=== PATIENT | female | born 1965 | race Caucasian/White ===

== ENCOUNTER 2016-11-16 14:13 | Emergency (ER) | payer BC ==
[2016-11-16 14:45] VITALS: BP 126/87
--- NOTE | 2016-11-16 15:16 | UC ---
Throat Pain/Nasal Alfie HPI - HPI Summary HPI Summary: 2d of sinus congestion, ST (now resolving), headache, malaise. Today "moved into the chest" and she has a non-productive cough that will sometimes end in a gag. No fever. She has a history of pneumonia and sinusitis in past, is concerned this will "turn into pneumonia". Poor appetite but was able to eat and drink some today. - History of Current Complaint Chief Complaint: UCGeneralIllness Stated Complaint: CONGESTION Time Seen by Provider: 11/16/16 14:52 Hx Obtained From: Patient Onset/Duration: Gradual Onset, Lasting Days - 2 Severity: Mild Cough: Nonproductive Associated Signs & Symptoms: Positive: Dysphagia, Hoarseness, Sinus Discomfort, Nasal Discharge. Negative: Fever, Vomiting, Rash Related History: Other (Noted In Comments) - history of pneumonia and sinusitis - Epiglottits Risk Factors Epiglottis Risk Factors: Negative - Allergies/Home Medications Allergies/Adverse Reactions: Allergies Allergy/AdvReac Type Severity Reaction Status Date / Time No Known Allergies Allergy Verified 11/16/16 14:45 Home Medications: Home Medications Cholecalciferol TAB* [Vitamin D TAB*] 1,000 unit PO DAILY 11/16/16 [History Confirmed 11/16/16] Levothyroxine TAB* [Synthroid 125 MCG TAB*] 125 mcg PO DAILY 11/16/16 [History Confirmed 11/16/16] Magnesium CITRATE* [Citrate of Magnesia*] 300 ml PO ONCE 11/16/16 [History Confirmed 11/16/16] PMH/Surg Hx/FS Hx/Imm Hx Endocrine History Of: Reports: Thyroid Disease Cardiovascular History Of: Denies: Pacemaker/ICD Respiratory History Of: Reports: Pneumonia - Surgical History Surgical History: None Surgery Procedure, Year, and Place: HYSTERECTOMY 2001. TUBAL LIGATION 1999 - Family History Known Family History: Positive: Hypertension - Social History Occupation: Employed Full-time - works 2 jobs Lives: With Family Alcohol Use: Occasionally Substance Use Type: None Smoking Status (MU): Never Smoked Tobacco Review of Systems Constitutional: Chills, Fatigue Skin: Negative Eyes: Negative ENT: Sore Throat, Nasal Discharge Respiratory: Cough Cardiovascular: Negative Gastrointestinal: Negative Genitourinary: Negative Motor: Negative Neurovascular: Negative Musculoskeletal: Myalgia Neurological: Headache Psychological: Negative All Other Systems Reviewed And Are Negative: Yes Physical Exam Triage Information Reviewed: Yes Appearance: Well-Appearing, No Pain Distress, Well-Nourished Vital Signs: Initial Vital Signs Temp 98.3 F 11/16/16 14:42 Pulse 75 11/16/16 14:42 Resp 18 11/16/16 14:42 BP 126/87 11/16/16 14:42 Pulse Ox 98 11/16/16 14:42 Vital Signs Reviewed: Yes Eye Exam: Normal ENT: Positive: Hearing grossly normal, Pharyngeal erythema - mild, Nasal congestion, TMs normal, Muffled/hoarse voice - hoarse Respiratory Exam: Normal Respiratory: Positive: Lungs clear, Normal breath sounds, No respiratory distress, No accessory muscle use Cardiovascular Exam: Normal Musculoskeletal Exam: Normal Neurological Exam: Normal Psychological Exam: Normal Skin Exam: Normal Throat Pain/Nasal Course/Dx - Differential Dx/Diagnosis Differential Diagnosis/HQI/PQRI: Pharyngitis, Sinusitis, URI Provider Diagnoses: URI Discharge - Discharge Plan Condition: Stable Disposition: HOME Prescriptions: Azithromycin TAB* [Zithromax TAB (Z-FARHANA) 250 mg #6 tabs] 250 mg PO DAILY #1 farhana Benzonatate CAP* [Tessalon CAP*] 100 mg PO TID PRN #30 cap PRN Reason: Cough Hydrocodone Polistirex-Chlorph [Tussionex Pennkinetic Ext 10-8 mg/5Ml] 1 teasp PO BID PRN #60 ml MDD 10ml PRN Reason: Cough Patient Education Materials: Upper Respiratory Infection (ED) Referrals: Shannon Torrez NP [Nurse Practitioner] -
== END 2016-11-16 15:18 | disposition home or self-care (01) ==
LOC: UCCORT 14:13
DX: J06.9 Acute upper respiratory infection, unspecified (principal); E07.9 Disorder of thyroid, unspecified
CPT/HCPCS: 99202; G0463

== ENCOUNTER 2018-06-05 16:23 | Emergency (ER) | payer BC ==
--- OUTSIDE RECORDS SUMMARY | 2018-06-05 17:41 | XMS REPORT ---
:1965 External Reference #:[id number] Author Organization [facility] Address [address] [place] [id number] Phone [phone] Care Team Providers Name Role Phone Ava Dunn MD Care Team Information Microbiological Analyst Unavailable Ava Dunn MD Primary Care Physician Unavailable Payers Type Date Identification Numbers Payment Provider Subscriber Commercial Effective: Policy Number: BCBS [place] Suzie Moore 2011 [id number] PayID: [id number] [address] [address] [place] [address] Problems Date Description Provider Status Onset: 05/08/2012 Kidney stone Armand Feldman M.D. Active Onset: 05/08/2012 Hydronephrosis Armand Feldman M.D. Active Onset: 05/08/2012 Ureteric stone Armand Feldman M.D. Active Family History Date Family Member(s) Problem(s) Comments Father Heart Disease Mother Breast Cancer Mother Heart Disease Free Text Denies Prostate, Bladder, Kidney Cancer. No family history of kidney stones. Social History Type Date Description Comments Marital Status Patient is Occupation none listed Cigarette Use 05/29/2018 Patient is a non-smoker Cigars non-smoker Pipe non-smoker ETOH Use Occ Alcohol Intake Daily Caffeine Does Not Consume Caffeine Allergies, Adverse Reactions, Alerts Date Description Reaction Status Severity Comments 05/11/2012 NKDA active Medications Medication Date Status Form Strength Qnty SIG Indications Ordering Provider Tamsulosin HCL 05/29/ Active Capsules 0.4mg 7caps 1 by Sharad Hedrick MD every day as needed renal colic pain Levoxyl / Active Tablets 125mcg Unknown 0000 Omeprazole / Active Capsules DR 20mg Unknown 0000 Fluorometholone / Active Suspension 0.1% Unknown 0000 Premarin / Active Cream 0.625mg/GM Unknown 0000 Naproxen / Active Tablets 250mg Christy, 0000 Cristine, P.A. Ciprofloxacin HCL / Hx Tablets 500mg 14tab 1 po Unknown 0000 - s bid 2014 Vital Signs Date Vital Result Comment 05/29/2018 Height 64 inches 5'4" Weight 175.00 lb Weight in kg's 79.380 BMI (Body Mass Index) 30.0 kg/m2 09/08/2015 Height 64 inches 5'4" Weight 170.00 lb Weight in kg's 77.112 BMI (Body Mass Index) 29.2 kg/m2 BP Systolic 130 mmHg right wrist audio BP Diastolic 92 mmHg right wrist audio Heart Rate 75 /min Body Temperature 98.8 F 06/10/2014 Height 64 inches 5'4" Weight 169.00 lb Weight in kg's 76.658 BMI (Body Mass Index) 29.0 kg/m2 BP Systolic 131 mmHg right wrist auto cuff BP Diastolic 96 mmHg right wrist auto cuff Heart Rate 75 /min Body Temperature 98.6 F 05/15/2012 Height 66 inches 5'6" Weight 167.00 lb Weight in kg's 75.751 BMI (Body Mass Index) 27.0 kg/m2 BP Systolic 115 mmHg right BP Diastolic 75 mmHg right Heart Rate 74 /min Body Temperature 99.0 F Results Test Date Test Result H/L Range Note 230 Ua Routine 05/29/2018 Ua Glucose Negative Ua Protein Negative Ua Nitrite Negative Ua Leuko Negative Ua Blood Negative Ua Color Yellow Ua Ketones Negative Ua Clarity Clear Ua Specific Ray 1.025 1.003-1.030 Ua PH 5.5 5.0-7.5 Ua Bilirubin Negative Ua Urobilinogen 0.2 E.U./dL 0.0-1.0 230 Ua Routine 03/23/2017 Ua Glucose Negative Ua Protein Negative Ua Nitrite Negative Ua Leuko Negative Ua Blood Negative Ua Color yellow Ua Ketones Negative Ua Clarity clear Ua Specifici Ray 1.020 1.003-1.030 Ua PH 6.5 5.0-7.5 Ua Bilirubin Negative Ua Urobilinogen 0.2 E.U./dL 0.0-1.0 230 Ua Routine 09/10/2015 Ua Glucose Negative Ua Protein Negative Ua Nitrite Negative Ua Leuko Negative Ua Blood Negative Ua Color yellow Ua Ketones Negative Ua Clarity clear Ua Specific Ray 1.015 1.003-1.030 Ua PH 7.0 5.0-7.5 Ua Bilirubin Negative Ua Urobilinogen 0.2 E.U./dL 0.0-1.0 230 Ua Routine 09/08/2015 Ua Glucose Negative Ua Protein Negative Ua Nitrite Negative Ua Leuko Negative Ua Blood Negative Ua Color yellow Ua Ketones Negative Ua Clarity clear Ua Specific Ray 1.015 1.003-1.030 Ua PH 7.5 5.0-7.5 Ua Bilirubin Negative Ua Urobilinogen 0.2 E.U./dL 0.0-1.0 #Ua Routine 06/10/2014 Ua Glucose Negative Ua Protein Negative Ua Nitrite Negative Ua Leuko Negative Ua Blood Negative Ua Color domenica Ua Ketones Negative Ua Clarity clear Ua Specific Ray 1.025 1.003-1.030 Ua PH 6.5 5.0-7.5 Ua Bilirubin Negative Ua Urobilinogen 0.2 E.U./dL 0.0-1.0 #Ua Routine 12/11/2012 Ua Glucose Negative Ua Protein Negative Ua Nitrite Negative Ua Leuko Negative Ua Blood Negative Ua Color Not Entered Ua Ketones Negative Ua Clarity Not Entered Ua Specific Ray 1.020 Ua PH 6.0 Ua Bilirubin Negative Ua Urobilinogen 0.2 E.U./dL #Ua Routine 06/12/2012 Ua Glucose Negative Ua Protein Negative Ua Nitrite Negative Ua Leuko Negative Ua Blood Negative Ua Color Not Entered Ua Ketones Negative Ua Clarity Not Entered Ua Specific Ray 1.010 Ua PH 5.5 Ua Bilirubin Negative Ua Urobilinogen 0.2 E.U./dL #Ua Routine 05/29/2012 Ua Glucose Negative Ua Protein 1+ Ua Nitrite Negative Ua Leuko 2+ Ua Blood 3+ Ua Color Not Entered Ua Ketones Negative Ua Clarity Not Entered Ua Specific Ray 1.025 Ua PH 5.5 Ua Bilirubin Negative Ua Urobilinogen 0.2 E.U./dL #Ua Routine 05/15/2012 Ua Glucose Negative Ua Protein 1+ Ua Nitrite Negative Ua Leuko 1+ Ua Blood 2+ Ua Color Not Entered Ua Ketones Negative Ua Clarity Not Entered Ua Specific Ray >=1.030 Ua PH 5.5 Ua Bilirubin Negative Ua Urobilinogen 0.2 E.U./dL Procedures Date CPT Code Description Status 10/24/2017 Mammogram Completed 03/08/2016 26863 Ultrasound Retro Renal Real Time With Image Limited Completed [facility] 09/08/2015 77555 Ultrasound Retro Renal Real Time With Image Limited Completed [facility] 06/10/2014 32695 Ultrasound Retro Renal Real Time With Image Limited Completed [facility] 06/11/2013 87393 Ultrasound Retro Renal Real Time With Image Completed 12/11/2012 54481 Ultrasound Retro Renal Real Time With Image Completed 06/12/2012 65309 Ultrasound Retro Renal Real Time With Image Completed 06/12/2012 73115 Ultrasound Retro Renal Real Time With Image Completed 05/29/2012 03015 Ultrasound Retro Renal Real Time With Image Completed 05/29/2012 75533 Cystourethroscopy, With Removal Of Foreign Body Completed [facility] 05/16/2012 40687 Lithotripsy, Extracorporeal Shock Wave Completed 05/15/2012 16657 Ultrasound Retro Renal Real Time With Image Completed 05/02/2012 38761 Lithotripsy, Extracorporeal Shock Wave Completed 04/25/2012 42783 Cystourethroscopy, W/Insertion Of [place] Transurethral Completed Surgery 04/25/2012 46316 Cystourethroscopy, With Manipulation W/O Removal Ov Completed Ureteral Calc Encounters Type Date Location Provider CPT E/M Dx Office Visit 05/29/2018 1:30p [facility]icky[facility]Jorge Alberto Casey [address] N20.0 Urology Alessandro Saeed N28.1 Office Visit 03/23/2017 1:20p [facility] Armand Feldman, 77322 N20.0 M.D. N28.1 R39.12 M54.5 Office Visit 03/08/2016 1:10p RodrigueMMohinderPMohinder UrologArmand Waterman, [address]87[address] N20.0 M.D. N28.1 Office Visit 09/10/2015 2:30p [facility]/Zhou.MMohinderPMohinder UrologArmand Waterman, [address]3484 N20.0 M.D. Office Visit 09/08/2015 2:30p [facility]icky[facility]rology [facility] [address] N20.0 R39.12 N28.1 Office Visit 06/10/2014 1:10p [place]/[facility] Armand Feldman, 06753 592.0 M.D. 788.62 788.31 Office Visit 12/11/2012 1:20p [place]/[facility] Armand Feldman, 39159 592.0 M.D. 593.2 Plan of Care Future Appointment(s):05/28/2019 4:00 pm - [facility] [place]/ A.M.PMohinder [id number]/28/2019 3:30 pm - [facility] [place]/[facility]P. [id number] - Garrett SaeedPThiagoN20.0 Calculus of kidneyComments:Is. 1 the right at 4 mm and 3 on the left from 2-5 mm. No hydronephrosis. Stable right sided renal cyst. 8 radiologist's final report.Reviewed medical expulsive therapy for renal colic. Tamsulosin prescription 0.4 mg 1 by mouth daily for renal colic sent to pharmacy. Call for his and dosing reviewed. Follow-up 12N28.1 Cyst of kidney, acquiredAllNew Medication:Tamsulosin HCL 0.4 mg
[2018-06-05 17:45] VITALS: BP 134/100
--- NOTE | 2018-06-05 19:58 | UC ---
Respiratory Complaint HPI - HPI Summary HPI Summary: The patient states that she's had had cough and congestion for several weeks. She has been cleaning up her mother's house and has not been wearing a mask where dust collects. For the past 4 days she's experienced pain around her right eye with tenderness around her sinuses, subjective fever and, and nasal congestion. She has history of allergic rhinitis. Patient states she has occasional chest tightness when cleaning a gianni rooms of her mother's house. She took [id number] medications for congestion, which provided temporary relief. Now she states pain has worsened and she has throbbing pain around her eye. She does not smoke, but she is exposed to her smoking. - History of Current Complaint Chief Complaint: UCRespiratory Stated Complaint: RIGHT EYE/SINUS COMPLAINT Time Seen by Provider: 06/05/18 17:59 Hx Obtained From: Patient ?: No Onset/Duration: Gradual Onset, Lasting Weeks Severity Initially: Mild Severity Currently: Moderate Pain Intensity: 4 Pain Scale Used: 0-10 Numeric Aggravating Factors: Allergens Alleviating Factors: OTC Meds Associated Signs And Symptoms: Positive: Nasal Congestion, Sinus Discomfort - Risk Factors Pulmonary Embolism Risk Factors: Oral Contraceptives Cardiac Risk Factors: Negative Pseudomonas Risk Factors: Negative Tuberculosis Risk Factors: Negative - Allergies/Home Medications Allergies/Adverse Reactions: Allergies Allergy/AdvReac Type Severity Reaction Status Date / Time No Known Allergies Allergy Verified 06/05/18 17:45 Home Medications: Home Medications Conjugated Estrogens VAG CM* [Premarin VAG CREAM*] 0.5 applic VAGINAL .SEE DIRECTIONS 06/05/18 [History Confirmed 06/05/18] PMH/Surg Hx/FS Hx/Imm Hx Previously Healthy: Yes Endocrine History: Hypothyroidism - O - Surgical History Surgical History: None Surgery Procedure, Year, and Place: HYSTERECTOMY 2001. TUBAL LIGATION 1999 - Family History Known Family History: Positive: Hypertension, Diabetes - Social History Alcohol Use: Occasionally Substance Use Type: None Smoking Status (MU): Never Smoked Tobacco Review of Systems ENT: Nasal Discharge, Sinus Congestion All Other Systems Reviewed And Are Negative: Yes Physical Exam Triage Information Reviewed: Yes Appearance: Well-Appearing, Well-Nourished, Pain Distress Vital Signs: Initial Vital Signs Temp 98.1 F 06/05/18 17:40 Pulse 85 06/05/18 17:40 Resp 16 06/05/18 17:40 BP 134/100 06/05/18 17:40 Pulse Ox 99 06/05/18 17:40 Vital Signs Reviewed: Yes Eyes: Positive: Conjunctiva Clear ENT: Positive: Normal ENT inspection, Pharynx normal, TMs normal, Sinus tenderness Neck: Positive: Supple, Nontender, No Lymphadenopathy Respiratory: Positive: Chest non-tender, Lungs clear, Normal breath sounds, No respiratory distress Abdomen Description: Positive: Nontender Musculoskeletal: Positive: Strength Intact, ROM Intact, No Edema UC Diagnostic Evaluation - Laboratory O2 Sat by Pulse Oximetry: 99 Respiratory Course/Dx - Course Course Of Treatment: Patient has right maxillary sinusitis, start antibiotics as prescribed, continue Flonase after nasal toileting with normal saline. Follow-up with primary care physician within 2 weeks. Avoid dust, use protective mask. - Differential Dx/Diagnosis Provider Diagnoses: Acute maxillary sinusitis Discharge - Sign-Out/Discharge Documenting (check all that apply): Patient Departure - Discharge Plan Condition: Stable Disposition: HOME Prescriptions: Amoxicillin/Clavulanate TAB* [Augmentin TAB 875*] 875 mg PO BID 10 Days #20 tab Fluticasone NASAL SPRAY 50MCG* [Flonase NASAL SPRAY 50MCG*] 2 spray BOTH NARES DAILY #1 btl Patient Education Materials: Amoxicillin/Clavulanate Potassium (By mouth), Fluticasone (Into the nose), Sinusitis (ED) Referrals: Elenita Fried NP [Primary Care Provider] - - Billing Disposition and Condition Condition: STABLE Disposition: Home
== END 2018-06-05 18:19 | disposition home or self-care (01) ==
LOC: UCCORT 16:23
DX: J01.00 Acute maxillary sinusitis, unspecified (principal); Z77.22 Contact with and (suspected) exposure to environmental tobacco smoke (acute) (chronic)
CPT/HCPCS: 99212; G0463

== ENCOUNTER 2018-12-03 15:58 | Emergency (ER) | payer BC ==
[2018-12-03 16:32] VITALS: BP 137/107
--- NOTE | 2018-12-03 16:54 | UC ---
Respiratory Complaint HPI - HPI Summary HPI Summary: C/O cough x 1 week, now worsening with more sinus congestion and left ear ache. - History of Current Complaint Chief Complaint: UCGeneralIllness Stated Complaint: COUGH/BILAT EAR PAIN Time Seen by Provider: 12/03/18 16:45 Hx Obtained From: Patient Onset/Duration: Sudden Onset, Lasting Weeks - 1, Worse Since - last 2 days Severity Initially: Mild Severity Currently: Mild Pain Intensity: 2 Character: Cough: Nonproductive Alleviating Factors: Nothing Associated Signs And Symptoms: Positive: Fever, URI, Nasal Congestion, Hoarseness - Allergies/Home Medications Allergies/Adverse Reactions: Allergies Allergy/AdvReac Type Severity Reaction Status Date / Time No Known Allergies Allergy Verified 12/03/18 16:32 PMH/Surg Hx/FS Hx/Imm Hx Endocrine History: Hypothyroidism - Surgical History Surgical History: None Surgery Procedure, Year, and Place: HYSTERECTOMY 2001. TUBAL LIGATION 1999 - Family History Known Family History: Positive: Cardiac Disease, Hypertension, Diabetes - Social History Occupation: Employed Full-time Lives: With Family Alcohol Use: Occasionally Substance Use Type: None Smoking Status (MU): Never Smoked Tobacco Household Exposure Type: Cigarettes Review of Systems All Other Systems Reviewed And Are Negative: Yes Constitutional: Positive: Fever, Chills, Fatigue ENT: Positive: Sore Throat, Ear Ache, Sinus Congestion, Sinus Pain/Tenderness Respiratory: Positive: Cough Is Patient Immunocompromised?: No Physical Exam Triage Information Reviewed: Yes Appearance: No Pain Distress, Well-Nourished, Ill-Appearing Vital Signs: Initial Vital Signs Temp 98.5 F 12/03/18 16:27 Pulse 81 12/03/18 16:27 Resp 16 12/03/18 16:27 BP 137/107 12/03/18 16:27 Pulse Ox 99 12/03/18 16:27 Vital Signs Reviewed: Yes Eyes: Positive: Conjunctiva Clear ENT: Positive: Pharynx normal, Nasal congestion, TMs normal Neck exam: Normal Respiratory: Positive: Lungs clear Cardiovascular Exam: Normal Musculoskeletal Exam: Normal Neurological Exam: Normal Psychological Exam: Normal Skin Exam: Normal UC Diagnostic Evaluation - Laboratory O2 Sat by Pulse Oximetry: 99 Respiratory Course/Dx - Differential Dx/Diagnosis Differential Diagnosis/HQI/PQRI: Asthma, Lower Resp Infection, Sinusitis Provider Diagnosis: URI (upper respiratory infection), Sinusitis, acute maxillary, Bronchospasm, acute Discharge - Sign-Out/Discharge Documenting (check all that apply): Patient Departure All imaging exams completed and their final reports reviewed: No Studies - Discharge Plan Condition: Stable Disposition: HOME Prescriptions: Amoxicillin PO (*) [Amoxicillin 875 MG (*)] 875 mg PO BID #20 tab Benzonatate CAP* [Tessalon 100 MG CAP*] 100 mg PO TID PRN #30 cap PRN Reason: Cough predniSONE TAB* [Deltasone 20 MG TAB*] 60 mg PO DAILY #18 tab Patient Education Materials: Upper Respiratory Infection (ED), Wheezing (ED), Prednisone (By mouth), Sinusitis (ED), Amoxicillin (By mouth) Referrals: Elenita Fried NP [Primary Care Provider] - - Billing Disposition and Condition Condition: STABLE Disposition: Home
== END 2018-12-03 17:18 | disposition home or self-care (01) ==
LOC: UCCORT 15:58
DX: J01.00 Acute maxillary sinusitis, unspecified (principal); J98.01 Acute bronchospasm
CPT/HCPCS: 99212; G0463